=== PATIENT | female | born 1970 | race Caucasian/White ===

== ENCOUNTER 2024-12-13 05:15 | Emergency (ER) | payer MEDICAID, SELFPAY ==
[2024-12-13] VITALS (14 sets, daily range): BP systolic 74–133; BP diastolic 58–83; PULSE 88–109; RESP 9–21; TEMP 36.4–36.8; O2SAT 71–97; BMI 30.4
--- NOTE | 2024-12-13 06:24 | EKG_ITS ---
[facility] Test Date: 2024-12-13 Pat Name: ÓSCAR SCHAFER Department: Room: - Gender: Female Bank Compliance Officer: : 1970 Requested By: Shahida Kaba Order Number: [id number] Reading MD: Shahida Kaba Measurements Intervals [place] Rate: 97 P: 43 TX: 161 QRS: 54 QRSD: 97 T: -7 QT: 362 QTc: 460 Interpretive Statements SINUS RHYTHM ST DEVIATION AND MODERATE T-WAVE ABNORMALITY, CONSIDER ANTERIOR ISCHEMIA [-0.1+ mV T-WAVE IN V3/V4] Compared to ECG 04/14/2022 08:57:24 T-wave abnormality now present Possible ischemia now present ST (T wave) deviation no longer present /store/S0/[id number]/ecg/[id number].pdf
--- NOTE | 2024-12-13 06:25 | PD.EDAMS ---
Altered Mental Status RME/HPI General Chief Complaint: Altered Mental Status Stated Complaint: AMS Time Seen by Provider: 12/13/24 06:23 Arrival date/time: 12/13/24 05:15 RME / HPI RME / HPI narrative: 54 year old female with history of CVA, seizures, Jennings's disease, hyperlipidemia, bedbound due to spinal injury and fractures, GERD presents to the ED [facility] from [facility] for evaluation of altered mental status. Per medics, [facility] staff reported they were unable to arouse the patient prompting calling 911. [facility] vital signs: blood pressure 138/96, HR 88, 96% on room air, and FSBS 103. On arrival to ED, patient moans and opens eyes to voice though unable to provide any additional history. Related Data Home Medications ?Medication ?Instructions ?Recorded ?Confirmed aspirin 81 mg capsule 81 mg PO QDAY 06/14/21 04/28/23 atorvastatin 10 mg tablet 10 mg PO HS 06/14/21 04/28/23 hydrocortisone 10 mg tablet 10 mg PO BID 06/14/21 04/28/23 mirtazapine 15 mg tablet 22.5 mg PO HS 12/17/21 04/28/23 cranberry fruit 400 mg capsule 400 mg PO BID 04/05/22 04/28/23 magnesium oxide 400 mg PO QDAY 04/05/22 04/28/23 multivitamin with minerals 1 tab PO QDAY 04/05/22 04/28/23 oxycodone-acetaminophen 5 mg-325 1 tab PO Q4H PRN Pain 04/29/23 04/29/23 mg tablet (Percocet) Previous Rx's ?Medication ?Instructions ?Recorded ferrous sulfate 325 mg (65 mg 325 mg PO QDAY #30 tabs 02/11/23 iron) tablet (iron) cephalexin 500 mg capsule 500 mg PO Q8H #21 caps 07/16/23 Allergies Allergy/AdvReac Type Severity Reaction Status Date / Time sulfamethoxazole Allergy Mild Hives Verified 06/20/21 16:30 trimethoprim Allergy Mild Hives Verified 06/20/21 16:30 ibuprofen Allergy Verified 12/16/21 18:56 milk Allergy Nausea Verified 12/18/21 17:01 morphine Allergy Verified 12/16/21 18:56 Review of Systems Review of Systems ROS Unobtainable: unobtainable due to mental status Past Medical History Past Medical History NEUROLOGIC: Positive Cerebrovascular Accident, Seizures and Epilepsy CARDIAC: Positive Atrial Fibrillation, Hypercholesterolemia and Hypotension GASTROINTESTINAL: Positive Gastroesophageal Reflux Disease MUSCULOSKELETAL: Positive Musculoskeletal Disorders ENDOCRINE: Positive Jennings's Disease HEMATOLOGIC: Positive Anemia PSYCHO/SOCIAL: Positive Depression and Anxiety OTHER HISTORY: Positive Falls Family History FAMILY HISTORY: Positive Family Psychiatric Problems; Negative Family Cardiac Disorders Surgical History SURGICAL: Positive Gastric Bypass Surgery Social History SMOKING STATUS: Unknown if ever smoked SECOND HAND EXPOSURE: No SUBSTANCE USE: does not use ED Exam Narrative Physical exam: GENERAL APPEARANCE: Pale, responds to painful stimuli HEENT: Normocephalic, atraumatic; pupils equal, round, reactive to light; EOMI; mucous membranes pink, moist; oropharynx clear NECK: Supple LUNGS: CTABL; no wheezes, no rales, no rhonchi HEART: tachycardic; normal S1, S2; no murmurs ABDOMEN: non distended; normal BS; soft, no tenderness, no guarding, no rebound; no masses, no organomegaly, no hernia BACK: no CVA tenderness EXTREMITIES: atraumatic; no edema NEUROLOGIC: opens eyes to voice; cranial nerves II-XII grossly intact PSYCHIATRIC: appropriate mood and affect SKIN: warm, dry, pale; no rashes Course Course Course Narrative: 0640: Made aware by RN the patient is now answering questions. 1155: Made aware by RN the patient is complaining of pain and is requesting to be given her home Percocet. 1250: Patient reports she is still having pain. Per RN, patient received her Percocet at 12:20. Patient states she has chronic pain to her hips and lower extremities that is aggravated with movements. Reportedly has consulted with pain management and her PCP at the SNF which have prescribed her Percocet 1 tab Q4H for pain. At this time we are pending transportation back to SNF. Quality Measures none Orders Category Date Time Status [employer] NOW Care 12/13/24 06:24 Active EKG (ED ONLY) *Do not use* NOW Care 12/13/24 06:24 Completed EKG (ED Only) Stat Exams 12/13/24 06:24 Draft XR chest 1V portable Stat Exams 12/13/24 06:24 Completed Alcohol, Blood Medical Stat Lab 12/13/24 07:05 Completed Ammonia Stat Lab 12/13/24 07:05 Completed B-Type Natriuretic Peptide Stat Lab 12/13/24 07:05 Completed CBC Stat Lab 12/13/24 07:05 Completed Comprehensive Metabolic Panel Stat Lab 12/13/24 07:05 Completed Drug Screen,Urine Stat Lab 12/13/24 06:23 Ordered Lipase Stat Lab 12/13/24 07:05 Completed Magnesium Stat Lab 12/13/24 07:05 Completed Troponin I Stat Lab 12/13/24 07:05 Completed UA, C/S IF [Urinalysis, C/S if Indicated] Stat Lab 12/13/24 06:24 Ordered Baclofen [Lioresal] Med 12/13/24 12:01 Discontinued 10 mg PO X1 ONE HYDROcodone/APAP 10/325 [[place] 10/325] Med 12/13/24 11:28 Discontinued 1 tab PO X1 ONE oxyCODONE/APAP 5/325 [Percocet 5/325] Med 12/13/24 12:01 Discontinued 2 tab PO X1 ONE Vital Signs Vital signs: Vital Signs Temperature 97.8 F 12/13/24 05:20 Pulse Rate 97 12/13/24 05:20 Respiratory Rate 17 12/13/24 05:20 Blood Pressure 133/79 H 12/13/24 05:20 Pulse Oximetry (%) 97 12/13/24 05:20 Oxygen Delivery Method Nasal Cannula 12/13/24 05:20 Oxygen Flow Rate 4 12/13/24 05:20 Altered Mental Status MDM Narrative MDM Narrative:: Sheree Shetty am scribing for and in the presence of Dr. Hernandez. Patient data External records reviewed:: [facility] previous records, EMS form and Detention records (I reviewed pmhx and medication list from [facility] ) Clinical information provided by:: EMS Social determinants that could affect healthcare access:: housing ([place] resident ) Patient has the following chronic illnesses:: CVA, seizures, Jennings's disease, hyperlipidemia, bedbound due to spinal injury and fractures, GERD How is presenting disease/condition affected by chronic disease/condition?: exacerbated by Evaluation data The following diagnostics were reviewed and interpreted by me:: lab results, radiology exam(s) and EKG tracing(s) (12/13/2024 @ 06:55 AM Q-wave in lead III, T-wave inversion in lead III and V1 through V6, ST depression in V2 through V5, no reciprocal elevations, ) Lab and/or radiology exams considered but not ordered:: None Interpretation Summary: Ordering Physician: Shahida Hernandez MD Date of Service: 12/13/24 Procedure(s): XR chest 1V portable Accession Number(s): [id number] cc: Judah Mendosa MD; Shahida Hernandez MD~ Examination: AP chest single view TECHNIQUE: AP portable semiupright chest single view Date and time on December 13, 2024, 0717 hours Comparison July 16, 2023 INDICATIONS: Acute chest pain today. FINDINGS: No significant cardiac enlargement Moderate vascular congestion. Atelectasis versus early pneumonia left base Prominent osteopenia IMPRESSION: Moderate vascular congestion Atelectasis versus early pneumonia left base, clinical correlation is advised Dictated By: Judah Mendosa MD Signed By: <Electronically signed by Judah Mendosa MD in OV> 12/13/24 0741 Medications / Prescriptions Medications or Prescriptions considered but not ordered:: None Medication administrations:: Medication Administration History Discontinued Medications Hydrocodone Bitart/Acetaminophen (Hydrocodone/Apap 10/325 Tab) 1 tab PO X1 ONE Stop: 12/13/24 11:29 Last Admin: 12/13/24 12:24 Dose: Not Given Documented By: KALEB Non-Admin Reason: Patient Refused Baclofen (Baclofen 10 Mg Tablet) 10 mg PO X1 ONE Stop: 12/13/24 12:02 Last Admin: 12/13/24 12:20 Dose: 10 mg Documented By: KALEB Oxycodone/Acetaminophen (Oxycodone/Apap 5/325 Tablet) 2 tab PO X1 ONE Stop: 12/13/24 12:02 Last Admin: 12/13/24 12:20 Dose: 2 tab Documented By: CG None Consultations Consultation(s) initiated? (list below): No Diagnosis Differential diagnosis altered mental status: altered mental status, dementia, hypoglycemia, hyponatremia, sepsis and other (UTI ) Most likely diagnosis given after review of the tests above:: Altered mental status Admission Indicated Admission indicated?: not indicated Admission Request Was there a request for admission?: No Disposition Plan Disposition Plan: Discharge Discharge Attestation Discharge Attestation: The patient and all family members were given an opportunity to ask questions and understood the discharge instructions. Discharge instructions specifically effects, indications for sooner follow up or return to the emergency department, and the expected course of current diagnosis. Patient condition: Stable Discharge Plan Plan Patient Disposition: Xfer Skilled Nsg Fac (SNF) Discharge Disposition comment: [facility] Prescriptions/Referrals Prescriptions/Med Rec: No Action atorvastatin 10 mg Tablet 10 mg PO HS hydrocortisone 10 mg Tablet 10 mg PO BID aspirin 81 mg Capsule 81 mg PO QDAY mirtazapine 15 mg tablet 22.5 mg PO HS oxycodone-acetaminophen [Percocet] 5-325 mg Tablet 1 tab PO Q4H PRN (Reason: Pain) cephalexin 500 mg capsule 500 mg PO Q8H Qty: 21 0RF cranberry fruit 400 mg Capsule 400 mg PO BID Rx Instructions: administer with meals magnesium oxide 400 mg magnesium Tablet 400 mg PO QDAY multivitamin with minerals Tablet 1 tab PO QDAY ferrous sulfate [iron] 325 mg (65 mg iron) tablet 325 mg PO QDAY Qty: 30 0RF Referrals: No Primary/Family,Physician [Primary Care Provider] - In 1 week Problem List Clinical Impression: Altered mental status Patient/Caregiver Discharge Instructions Education Materials: ED ALOC Print Language: Ukrainian Stand Alone Forms: Analy Award Info., Patient Portal Info Letter
[2024-12-13 07:21] LABS: Basophils # (Auto) 0.1 Thou/mm3 (0.0-0.2); Basophils % (Auto) 1 % (0-2.5); Eosinophils # (Auto) 0.3 Thou/mm3 (0.0-0.5); Eosinophils % (Auto) 2 % (0-10); Hematocrit 41.5 % (36.0-46.0); Hemoglobin 13.4 g/dL (12.0-16.0); Immature Granulocytes Auto 0.08 Thou/mm3 (0.00-0.00); Lymphocytes # (Auto) 2.9 Thou/mm3 (1.0-4.8); Lymphocytes % (Auto) 24 % (10-50); Mean Corpuscular HGB Conc 32.3 g/dl (31.0-37.0); Mean Corpuscular Hemoglobin 31.5 pg (25.0-35.0); Mean Corpuscular Volume 98 fL (80-100); Monocytes # (Auto) 1.0 Thou/mm3 (0.0-0.8); Monocytes % (Auto) 8 % (0-12); Neutrophils # (Auto) 7.8 Thou/mm3 (1.8-7.7); Neutrophils % (Auto) 65 % (37-80); Nucleated Red Blood Cell # 0.00 Thou/mm3 (0.00-0.00); Nucleated Red Blood Cell % 0 /100 WBC (0); Platelet Count 250 Thou/mm3 (140-440); RDW Standard Deviation 45.2 fL (36.4-46.3); Red Blood Count 4.25 Miln/mm3 (4.00-5.20); White Blood Count 12.0 Thou/mm3 (3.6-11.0)
[2024-12-13 07:37] LABS: Ammonia < 10 uMol/L (11-32)
[2024-12-13 07:43] LABS: Alanine Aminotransferase 19 U/L (10-49); Albumin, Serum 4.2 gm/dL (3.5-5.0); Albumin/Globulin Ratio 1.4 (1.2-2.2); Alcohol, Blood Medical < 3.0 mg/dL (0-10.0); Alkaline Phosphatase 161 U/L (46-116); Anion Gap 11 (7-16); Aspartate Amino Transferase 25 U/L (0-34); BUN/Creatinine Ratio 28 Ratio (12-20); Bilirubin,Total 0.4 mg/dL (0.3-1.2); Blood Urea Nitrogen 22 mg/dL (9-23); Calcium 9.4 mg/dL (8.3-10.6); Calcium (Corrected) 9.4 mg/dL (8.5-10.1); Carbon Dioxide 32.2 mMol/L (20.0-31.0); Chloride 100 mMol/L (98-107); Creatinine (Component) 0.8 mg/dL (0.6-1.3); Estimated Creatinine Clearance 92.5 mL/min (>60); Globulin 3.0 gm/dL (2.3-3.5); Glucose 106 mg/dL (74-106); Lipase 22 U/L (12-53); Magnesium 2.1 mg/dL (1.6-2.6); Osmolality,Calculated 288 (275-295); Potassium 4.0 mMol/L (3.4-5.1); Sodium 143 mMol/L (136-145); Total Protein 7.2 gm/dL (5.7-8.2); Troponin I < 0.002 ng/mL (0.0-0.045); eGFR > 60 See Note
--- NOTE | 2024-12-13 07:52 | PC.NURSE ---
PATIENT REFUSED HEAD CT, PATIENT DOES NOT WANT TO BE TOUCHED. PATIENT STATES SHE IS IN A LOT OF PAIN. PATIENT EDUCATED ON NEED FOR TURNING HER AND CHANGING HER BRIEF TO PREVENT SKIN BREAKDOWN. PATIENT STATES SHE DOES NOT WANT TO BE MOVED OR TOUCHED PATIENT SCREAMING AT STAFF TO LEAVE HER IN THE SAME POSITION. DR. PIÑA MADE AWARE, PER MD SHE WILL CANCEL HEAD CT. MD MADE AWARE PATIENT REFUSING CARE AT THIS TIME. VITALS STABLE. PER PATIENT HER FACILITY HAS A NEW NURSE THAT WORKS NIGHTS AND HE WOKE HER UP WHEN HE WASN'T SUPPOSED TO, SHE IS NOT SURE WHY HE TRIED TO WAKE HER UP AND CALLED THE AMBULANCE WHEN HE HAD TROUBLE WAKING HER UP
[2024-12-13 07:54] LABS: B-Type Natriuretic Peptide < 20 pg/mL (0-100)
--- NOTE | 2024-12-13 11:08 | PC.SS ---
Addendum entered by Ivonne Galvez 12/13/24 11:27: SS follow up note; SS was contacted by [facility] and they informed SS that ETA for transportation will be 1430. SS will update patients nurse. Original Note: SS contacted [facility] transportation they informed SS that they will contact SS with ETA.
--- NOTE | 2024-12-13 11:10 | PC.NURSE ---
PATIENT AWARE SHE IS BEING DISCHARGED AND WAITING FOR RIDE TO FACILITY, REPORT WAS CALLED TO JOSE ANTONIO NURSE AT [facility]. PER JOSE ANTONIO PATIENT REFUSES CARE WHEN SHE IS AT FACILITY WELL. PATIENT BRIEF FULL OF URINE. PATIENT DECLINED BEING CHANGED. PATIENT DID NOT WANT TO BE MOVED. HAND OFF REPORT GIVEN TO BARRON BARR FOR TRANSFER OF CARE. NO FURTHER QUESTIONS.
[2024-12-13] MEDS: BACLOFEN 10 MG TABLET PO (12:20)
== END 2024-12-13 14:59 | disposition skilled nursing facility (03) ==
PROVIDERS: Emergency Provider Emergency Medicine
DX: R41.82 Altered mental status, unspecified (principal); R09.89 Other specified symptoms and signs involving the circulatory and respiratory systems; R94.31 Abnormal electrocardiogram [ECG] [EKG]; E78.00 Pure hypercholesterolemia, unspecified
CPT/HCPCS: 36415; 36600; 71045; 80053; 80307; 80320; 81001; 82140; 82803; 83690; 83735; 83880; 84484; 85025; 93005; 99283; A9270; G0480